=== PATIENT | male | born 1955 | race Caucasian/White ===

== ENCOUNTER → 2016-07-23 | Outpatient (CLI) | payer OTHER ==
[2016-07-23 13:06] LABS: MEAN CORPUSCULAR HEMOGLOBIN 31.4 pg (27.0-33.0); MEAN CORPUSCULAR HGB CONC 34.8 g/dl (32.0-36.5); MEAN CORPUSCULAR VOLUME 90.3 fl (80.0-96.0); RED CELL DISTRIBUTION WIDTH 12.2 % (11.5-14.5)
[2016-07-23 13:43] LABS: ALBUMIN 4.2 GM/DL (3.2-5.2); ALBUMIN/GLOBULIN RATIO 1.56 (1.00-1.93); ALKALINE PHOSPHATASE 45 U/L (45-117); ALT/SGPT 27 U/L (12-78); ANION GAP 8 MEQ/L (8-16); AST/SGOT 23 U/L (15-37); BILIRUBIN,TOTAL 0.8 MG/DL (0.2-1.0); BLOOD UREA NITROGEN 28 MG/DL (7-18); CALCIUM LEVEL 8.8 MG/DL (8.5-10.1); CARBON DIOXIDE LEVEL 29 MEQ/L (21-32); CHLORIDE LEVEL 107 MEQ/L (98-107); CHOLESTEROL LEVEL 173 MG/DL (<200); CREATININE FOR GFR 1.06 MG/DL (0.70-1.30); GLOMERULAR FILTRATION RATE > 60.0 (>56); GLUCOSE, FASTING 88 MG/DL (70-105); POTASSIUM SERUM 4.8 MEQ/L (3.5-5.1); SODIUM LEVEL 144 MEQ/L (136-145); TOTAL PROTEIN 6.9 GM/DL (6.4-8.2); TRIGLYCERIDES LEVEL 54 MG/DL (<150)
--- NOTE | 2016-07-23 13:57 | REP ---
PA AND LATERAL CHEST: 07/23/2016. Clinical history: Anemia. Comparison: 05/15/2015. Findings: The lung ugarte are well inflated. There are a few scattered granulomas again seen but stable. No effusion, infiltrate, pleural thickening, apical pneumothorax or parenchymal mass. The heart, mediastinal and hilar contours are normal. The airway is intact. The aorta mildly tortuous but normal for age. There are degenerative changes in the spine. Impression: 1. No acute cardiopulmonary disease, stable chest with some old granulomatous disease. Signed by Magdy Mix MD 07/23/2016 07:37 P
--- NOTE | 2016-07-23 15:18 | ECGEPIP ---
Stationary ECG Study [facility] Test Date: 2016-07-23 Pat Name: HARVINDER ATKINS Department: Room: - Gender: M Senior Process Control Tech: AGAPITO : 1955 Requested By: Gautam Gaffney Order Number: [id number] Reading MD: Saskia Somers Measurements Intervals [place] Rate: 74 P: 50 MS: 196 QRS: -18 QRSD: 105 T: 54 QT: 369 QTc: 410 Interpretive Statements SINUS RHYTHM Left axis deviation similar TO 01/05/16 Electronically Signed On 07-23-2016 15:18:22 EST by Saskia Somers
== END ==
LOC: M LAB 11:22
PROVIDERS: ATTEND Family Medicine
DX: D64.9 Anemia, unspecified (principal); E03.9 Hypothyroidism, unspecified

== ENCOUNTER 2016-08-03 12:10 | Emergency (ER) | payer OTHER ==
[2016-08-03 13:15] LABS: MEAN CORPUSCULAR HEMOGLOBIN 30.8 pg (27.0-33.0); MEAN CORPUSCULAR HGB CONC 33.9 g/dl (32.0-36.5); MEAN CORPUSCULAR VOLUME 90.8 fl (80.0-96.0); RED CELL DISTRIBUTION WIDTH 12.5 % (11.5-14.5); WHITE BLOOD COUNT 4.7 K/mm3 (4.0-10.0)
[2016-08-03 13:42] LABS: ALBUMIN/GLOBULIN RATIO 1.25 (1.00-1.93); ALKALINE PHOSPHATASE 47 U/L (45-117); ALT/SGPT 48 U/L (12-78); ANION GAP 11 MEQ/L (8-16); AST/SGOT 55 U/L (15-37); BILIRUBIN,DIRECT 0.1 MG/DL (0.0-0.2); BILIRUBIN,TOTAL 0.4 MG/DL (0.2-1.0); BLOOD UREA NITROGEN 16 MG/DL (7-18); CALCIUM LEVEL 8.2 MG/DL (8.5-10.1); CARBON DIOXIDE LEVEL 26 MEQ/L (21-32); CHLORIDE LEVEL 105 MEQ/L (98-107); GLOMERULAR FILTRATION RATE > 60.0 (>56); GLUCOSE, FASTING 91 MG/DL (70-105); POTASSIUM SERUM 4.2 MEQ/L (3.5-5.1); SODIUM LEVEL 142 MEQ/L (136-145); TOTAL PROTEIN 7.2 GM/DL (6.4-8.2)
[2016-08-03 18:17] LABS: CONTROL LINE INT CTR LINE PRESENT; METHADONE URINE NEGATIVE (NEGATIVE); TRICYCLIC ANTIDEPRESS URINE NEGATIVE (NEGATIVE)
[2016-08-03] MEDS ORDERED: IBUPROFEN 600 MG TAB As Ordered ONE (18:33)
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
--- NOTE | 2016-08-03 19:39 | EDDOCDS ---
Physician Documentation [facility] Name: Hermann Ritchie Age: 60 yrs Sex: Male : 1955 Arrival Date: 08/03/2016 Time: 12:10 Bed [facility] Private MD: Disposition: 08/03/16 19:07 Discharged to Home/Self Care. Impression: Alcohol abuse counseling and surveillance, Alcohol abuse with intoxication. - Condition is Stable. - Discharge Instructions: Alcohol Intoxication, Alcohol Use Disorder. - Medication Reconciliation, Local Pharmacy Hours form. - Follow up: Referral list, As provided by PFS; When: As soon as possible; Reason: Continuance of care. - Problem is an acute exacerbation. - Symptoms have improved. Historical: - Allergies: no known allergies; - Home Meds: 1. none - PMHx: none; - PSHx: Appendectomy; right 5th digit mallet repair; - Social history: Smoking status: Patient states was never smoker of tobacco. Patient uses alcohol occasionally. patient/guardian reports recent binge of alcohol consumption. Patient/guardian denies using street drugs, No barriers to communication noted, The patient speaks fluent Irish, Speaks appropriately for age. - Family history: Not pertinent. - : The pt / caregiver states he / she is not on anticoagulants. Home medication list is obtained from the patient. - Exposure Risk Screening:: None identified. Vital Signs: 08/03 12:16 BP 128 / 74; Pulse 99; Resp 20; Temp 98.0; Pulse Ox 96% on R/A; amw 12:19 Weight 81.65 kg / 180.01 lbs (R); Height 6 ft. 3 in. (190.50 cm) (R); Pain 0/10; ead 15:39 BP 109 / 71; Pulse 105; Resp 20; Temp 99.3(T); Pulse Ox 95% on R/A; Pain 0/10; jc4 19:36 BP 116 / 70; Pulse 89; Resp 16; Temp 97.9(T); Pulse Ox 96% on R/A; Pain 0/10; rw1 12:19 Body Mass Index 22.50 (81.65 kg, 190.50 cm) ead MDM: 12:24 Consult PFS/PSA/Black Topper ordered. ke 12:24 Consult PFS/PSA/Black Topper: Patient's case requires discussion with on-call ke Psychiatrist ordered. 12:24 PSA/PFS to call Nursing Care Aide, to enter patient data on [place] Safe Act if patient ke involuntarily admitted or transferred for SI or HI ordered. 12:24 Confirm accurate psychiatric medication list and times of last dosage ordered. ke 12:24 Detain Pt Until Medically/PFS Cleared ordered. ke 12:25 Acetaminophen Level Ordered. EDMS 12:25 Basic Metabolic Profile Ordered. EDMS 12:25 Complete Blood Count Ordered. EDMS 12:25 Drug Eval Toxicology ED Only Ordered. EDMS 12:25 Ethyl Alcohol (ethanol) Ordered. EDMS 12:25 Liver Profile Ordered. EDMS 12:25 Salicylate Level Ordered. EDMS 12:25 Thyroid Stimulating Hormone Ordered. EDMS 12:35 [facility] Legal paperwork was scanned into [email or web address] and attached to record. jfb 14:07 Acetaminophen Level Reviewed. ke 14:07 Basic Metabolic Profile Reviewed. ke 14:07 Ethyl Alcohol (ethanol) Reviewed. ke 14:07 Liver Profile Reviewed. ke 14:07 Salicylate Level Reviewed. ke 14:07 Complete Blood Count Reviewed. ke 14:07 Thyroid Stimulating Hormone Reviewed. ke 14:54 Financial registration complete. lg 15:18 [facility] Payment Agreement was scanned into [email or web address] and attached to record. lg 17:16 REGULAR DIET PLASTIC IRVIN+DIET ordered. EDMS 17:37 Ibuprofen 600 mg PO once ordered. ke 18:27 Drug Eval Toxicology ED Only Reviewed. ke 19:04 Consult PFS/PSA/Black Topper complete. jfb 19:04 Consult PFS/PSA/Black Topper: Patient's case requires discussion with on-call jlil Psychiatrist complete. 19:04 PSA/PFS to call Nursing Care Aide, to enter patient data [place] Safe Act if patient jfb involuntarily admitted or transferred for SI or HI complete. 19:25 PSA Outpatient Referrals was scanned into [email or web address] and attached to record. jfb Administered Medications: 18:37 Drug: Ibuprofen 600 mg [ibuprofen 600 mg tablet (1 tabs)] Route: PO; ja5 19:36 Follow up: Response: Pain is decreased rw1 Signatures: Dispatcher [employer] EDMS Oswald Muniz, Reg Reg lg Philip Guzman, MANAGER TALENT MANAGER TALENT Jewel Meyer,WAITER/WAITRESS TAVERN WAITER/WAITRESS TAVERN rw1 Beatriz Perez PSA PSA Mariam Acosta,RN RN Rebecca Billingsley RN RN ms18 Jhonatan, Nancy MCGINNIS ja5 The chart was reviewed and I authenticate all verbal orders and agree with the evaluation and treatment provided.Attachments: 15:18 [facility] Payment Agreement lg MTDD
--- NOTE | 2016-08-05 20:39 | EDDOCDS ---
Physician Documentation [facility] Name: Hermann Ritchie Age: 60 yrs Sex: Male : 1955 Arrival Date: 08/03/2016 Time: 12:10 Bed [facility] Private MD: Disposition: 08/03/16 19:07 Discharged to Home/Self Care. Impression: Alcohol abuse counseling and surveillance, Alcohol abuse with intoxication. - Condition is Stable. - Discharge Instructions: Alcohol Intoxication, Alcohol Use Disorder. - Medication Reconciliation, Local Pharmacy Hours form. - Follow up: Referral list, As provided by PFS; When: As soon as possible; Reason: Continuance of care. - Problem is an acute exacerbation. - Symptoms have improved. Historical: - Allergies: no known allergies; - Home Meds: 1. none - PMHx: none; - PSHx: Appendectomy; right 5th digit mallet repair; - Social history: Smoking status: Patient states was never smoker of tobacco. Patient uses alcohol occasionally. patient/guardian reports recent binge of alcohol consumption. Patient/guardian denies using street drugs, No barriers to communication noted, The patient speaks fluent [place]serrat[place], Speaks appropriately for age. - Family history: Not pertinent. - : The pt / caregiver states he / she is not on anticoagulants. Home medication list is obtained from the patient. - Exposure Risk Screening:: None identified. Vital Signs: 08/03 12:16 BP 128 / 74; Pulse 99; Resp 20; Temp 98.0; Pulse Ox 96% on R/A; amw 12:19 Weight 81.65 kg / 180.01 lbs (R); Height 6 ft. 3 in. (190.50 cm) (R); Pain 0/10; ead 15:39 BP 109 / 71; Pulse 105; Resp 20; Temp 99.3(T); Pulse Ox 95% on R/A; Pain 0/10; jc4 19:36 BP 116 / 70; Pulse 89; Resp 16; Temp 97.9(T); Pulse Ox 96% on R/A; Pain 0/10; rw1 12:19 Body Mass Index 22.50 (81.65 kg, 190.50 cm) ead MDM: 12:24 Consult PFS/PSA/[employer] ordered. ke 12:24 Consult PFS/PSA/[employer]: Patient's case requires discussion with on-call ke Psychiatrist ordered. 12:24 PSA/PFS to call Nursing Business Asst, to enter patient data on [place] Safe [place] if patient ke involuntarily admitted or transferred for SI or HI ordered. 12:24 Confirm accurate psychiatric medication list and times of last dosage ordered. ke 12:24 Detain Pt Until Medically/PFS Cleared ordered. ke 12:25 Acetaminophen Level Ordered. EDMS 12:25 Basic Metabolic Profile Ordered. EDMS 12:25 Complete Blood Count Ordered. EDMS 12:25 Drug Eval Toxicology ED Only Ordered. EDMS 12:25 Ethyl Alcohol (ethanol) Ordered. EDMS 12:25 Liver Profile Ordered. EDMS 12:25 Salicylate Level Ordered. EDMS 12:25 Thyroid Stimulating Hormone Ordered. EDMS 12:35 [facility] Legal paperwork was scanned into [employer] and attached to record. jfb 14:07 Acetaminophen Level Reviewed. ke 14:07 Basic Metabolic Profile Reviewed. ke 14:07 Ethyl Alcohol (ethanol) Reviewed. ke 14:07 Liver Profile Reviewed. ke 14:07 Salicylate Level Reviewed. ke 14:07 Complete Blood Count Reviewed. ke 14:07 Thyroid Stimulating Hormone Reviewed. ke 14:54 Financial registration complete. lg 15:18 [facility] Payment Agreement was scanned into [employer] and attached to record. lg 17:16 REGULAR DIET PLASTIC IRVIN+DIET ordered. EDMS 17:37 Ibuprofen 600 mg PO once ordered. ke 18:27 Drug Eval Toxicology ED Only Reviewed. ke 19:04 Consult PFS/PSA/[employer] complete. jfb 19:04 Consult PFS/PSA/[employer]: Patient's case requires discussion with on-call [facility] Psychiatrist complete. 19:04 PSA/PFS to call Nursing Business Asst, to enter [place] data [place] if patient jfb involuntarily admitted or transferred for SI or HI complete. 19:25 PSA Outpatient Referrals was scanned into [employer] and attached to record. jfb 08/04 19:03 T-Sheet-- Draft Copy was scanned into [employer] and attached to record. klr Administered Medications: 08/03 18:37 Drug: Ibuprofen 600 mg [ibuprofen 600 mg tablet (1 tabs)] Route: PO; ja5 19:36 Follow up: Response: Pain is decreased rw1 Signatures: Dispatcher [employer] EDMS Oswald Munzi, Reg Reg lg Philip Guzman, TICKETER TICKETER Jewel Meyer,AIRPORT SHUTTLE DRIVER AIRPORT SHUTTLE DRIVER rw1 Beatriz Perez, PSA PSA siobhanb Mariam Bates,RN RN Rebecca Billingsley RN RN ms18 Georgiana Johnson Jessica RN ja5 The chart was reviewed and I authenticate all verbal orders and agree with the evaluation and treatment provided.Attachments: 15:18 [facility] Payment Agreement 08/04 19:03 T-Sheet-- Draft Copy gordo Chart Complete MTDD
--- NOTE | 2016-08-05 20:39 | EDDOCDS ---
Physician Documentation [facility] Name: Hermann Ritchie Age: 60 yrs Sex: Male : 1955 Arrival Date: 08/03/2016 Time: 12:10 Bed [facility] Private MD: Disposition: 08/03/16 19:07 Discharged to Home/Self Care. Impression: Alcohol abuse counseling and surveillance, Alcohol abuse with intoxication. - Condition is Stable. - Discharge Instructions: Alcohol Intoxication, Alcohol Use Disorder. - Medication Reconciliation, Local Pharmacy Hours form. - Follow up: Referral list, As provided by PFS; When: As soon as possible; Reason: Continuance of care. - Problem is an acute exacerbation. - Symptoms have improved. Historical: - Allergies: no known allergies; - Home Meds: 1. none - PMHx: none; - PSHx: Appendectomy; right 5th digit mallet repair; - Social history: Smoking status: Patient states was never smoker of tobacco. Patient uses alcohol occasionally. patient/guardian reports recent binge of alcohol consumption. Patient/guardian denies using street drugs, No barriers to communication noted, The patient speaks fluent Liberian, Speaks appropriately for age. - Family history: Not pertinent. - : The pt / caregiver states he / she is not on anticoagulants. Home medication list is obtained from the patient. - Exposure Risk Screening:: None identified. Vital Signs: 08/03 12:16 BP 128 / 74; Pulse 99; Resp 20; Temp 98.0; Pulse Ox 96% on R/A; amw 12:19 Weight 81.65 kg / 180.01 lbs (R); Height 6 ft. 3 in. (190.50 cm) (R); Pain 0/10; ead 15:39 BP 109 / 71; Pulse 105; Resp 20; Temp 99.3(T); Pulse Ox 95% on R/A; Pain 0/10; jc4 19:36 BP 116 / 70; Pulse 89; Resp 16; Temp 97.9(T); Pulse Ox 96% on R/A; Pain 0/10; rw1 12:19 Body Mass Index 22.50 (81.65 kg, 190.50 cm) ead MDM: 12:24 Consult PFS/PSA/Preschool Program Director ordered. ke 12:24 Consult PFS/PSA/Preschool Program Director: Patient's case requires discussion with on-call ke Psychiatrist ordered. 12:24 PSA/PFS to call Nursing Screen Operator, to [place] data [place] if patient ke involuntarily admitted or transferred for SI or HI ordered. 12:24 Confirm accurate psychiatric medication list and times of last dosage ordered. ke 12:24 Detain Pt Until Medically/PFS Cleared ordered. ke 12:25 Acetaminophen Level Ordered. EDMS 12:25 Basic Metabolic Profile Ordered. EDMS 12:25 Complete Blood Count Ordered. EDMS 12:25 Drug Eval Toxicology ED Only Ordered. EDMS 12:25 Ethyl Alcohol (ethanol) Ordered. EDMS 12:25 Liver Profile Ordered. EDMS 12:25 Salicylate Level Ordered. EDMS 12:25 Thyroid Stimulating Hormone Ordered. EDMS 12:35 [facility] Legal paperwork was scanned into [employer] and attached to record. jfb 14:07 Acetaminophen Level Reviewed. ke 14:07 Basic Metabolic Profile Reviewed. ke 14:07 Ethyl Alcohol (ethanol) Reviewed. ke 14:07 Liver Profile Reviewed. ke 14:07 Salicylate Level Reviewed. ke 14:07 Complete Blood Count Reviewed. ke 14:07 Thyroid Stimulating Hormone Reviewed. ke 14:54 Financial registration complete. lg 15:18 [facility] Payment Agreement was scanned into [employer] and attached to record. lg 17:16 REGULAR DIET PLASTIC IRVIN+DIET ordered. EDMS 17:37 Ibuprofen 600 mg PO once ordered. ke 18:27 Drug Eval Toxicology ED Only Reviewed. ke 19:04 Consult PFS/PSA/Preschool Program Director complete. jfb 19:04 Consult PFS/PSA/Preschool Program Director: Patient's case requires discussion with on-call [facility] Psychiatrist complete. 19:04 PSA/PFS to call Nursing Screen Operator, to [place] if patient jfb involuntarily admitted or transferred for SI or HI complete. 19:25 PSA Outpatient Referrals was scanned into [employer] and attached to record. jfb 08/04 19:03 T-Sheet-- Draft Copy was scanned into [employer] and attached to record. klr Administered Medications: 08/03 18:37 Drug: Ibuprofen 600 mg [ibuprofen 600 mg tablet (1 tabs)] Route: PO; ja5 19:36 Follow up: Response: Pain is decreased rw1 Signatures: Dispatcher [employer] EDMS Oswald Muniz, Reg Reg lg Philip Guzman, CLEAN RICE BROKER CLEAN RICE BROKER Jewel Meyer,NOCTURNIST PHYSICIAN NOCTURNIST PHYSICIAN rw1 Beatriz Perez, PSA PSA siobhanb Mariam Bates,RN RN Rebecca Billingsley RN RN ms18 Georgiana Johnson Jessica RN ja5 The chart was reviewed and I authenticate all verbal orders and agree with the evaluation and treatment provided.Attachments: 15:18 [facility] Payment Agreement 08/04 19:03 T-Sheet-- Draft Copy gordo Chart Complete MTDD
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
== END 2016-08-03 19:38 | disposition home or self-care (01) ==
LOC: M ED 12:10
DX: F10.120 Alcohol abuse with intoxication, uncomplicated (principal)
CPT/HCPCS: 36415; 80048; 80076; 80306; 84443; 85027; 99284; G0480

== ENCOUNTER → 2016-12-21 | Outpatient (CLI) | payer OTHER | LOC: M SMT 10:41 | PROVIDERS: ATTEND Urology | DX: Z12.5 Encounter for screening for malignant neoplasm of prostate (principal) ==

== ENCOUNTER → 2017-09-06 | Outpatient (CLI) | payer OTHER ==
[2017-09-06 14:28] LABS: HEMATOCRIT 45.9 % (42.0-52.0); HEMOGLOBIN 15.5 g/dl (14.0-18.0); MEAN CORPUSCULAR HEMOGLOBIN 29.6 pg (27.0-33.0); MEAN CORPUSCULAR HGB CONC 33.8 g/dl (32.0-36.5); MEAN CORPUSCULAR VOLUME 87.6 fl (80.0-96.0); PLATELET COUNT, AUTOMATED 218 10^3/uL (150-450); RED BLOOD COUNT 5.24 10^6/uL (4.30-6.10); WHITE BLOOD COUNT 5.1 10^3/uL (4.0-10.0)
[2017-09-06 15:17] LABS: TESTOSTERONE 423 NG/DL (241-827)
[2017-09-06 20:18] LABS: ALBUMIN 3.8 GM/DL (3.2-5.2); ALBUMIN/GLOBULIN RATIO 1.27 (1.00-1.93); ALKALINE PHOSPHATASE 36 U/L (45-117); ALT/SGPT 24 U/L (12-78); ANION GAP 7 MEQ/L (8-16); AST/SGOT 16 U/L (7-37); BILIRUBIN,TOTAL 0.7 MG/DL (0.2-1.0); BLOOD UREA NITROGEN 26 MG/DL (7-18); CALCIUM LEVEL 8.5 MG/DL (8.8-10.2); CARBON DIOXIDE LEVEL 30 MEQ/L (21-32); CHLORIDE LEVEL 105 MEQ/L (98-107); CHOLESTEROL LEVEL 160 MG/DL (<200); CHOLESTEROL RISK RATIO 2.622 (<5); CREATININE FOR GFR 1.01 MG/DL (0.70-1.30); GLOMERULAR FILTRATION RATE > 60.0 (>49); GLUCOSE, FASTING 88 MG/DL (70-100); HDL CHOLESTEROL 61 MG/DL (>40); LDL CHOLESTEROL 85.4 MG/DL (<100); NON-HDL-C 99 MG/DL; POTASSIUM SERUM 4.5 MEQ/L (3.5-5.1); PROSTATIC SPECIFIC AG MONITOR 1.08 NG/ML (< 4.0); SODIUM LEVEL 142 MEQ/L (136-145); TOTAL PROTEIN 6.8 GM/DL (6.4-8.2); TRIGLYCERIDES LEVEL 68 MG/DL (<150)
== END ==
LOC: M LAB 14:04
DX: R53.83 Other fatigue (principal); N40.1 Benign prostatic hyperplasia with lower urinary tract symptoms
CPT/HCPCS: 93005

== ENCOUNTER → 2018-01-11 | Outpatient (CLI) | payer OTHER ==
[2018-01-11 18:54] LABS: PROSTATIC SPECIFIC AG MONITOR 0.93 NG/ML (< 4.0)
== END ==
LOC: M SMT 13:56
DX: R97.20 Elevated prostate specific antigen [PSA] (principal)

== ENCOUNTER → 2018-09-01 | Outpatient (CLI) | payer OTHER ==
[2018-09-01 09:12] LABS: HEMATOCRIT 46.1 % (42.0-52.0); HEMOGLOBIN 15.7 g/dl (13.5-17.5); MEAN CORPUSCULAR HEMOGLOBIN 30.1 pg (27.0-33.0); MEAN CORPUSCULAR HGB CONC 34.1 g/dl (32.0-36.5); MEAN CORPUSCULAR VOLUME 88.5 fl (80.0-96.0); PLATELET COUNT, AUTOMATED 172 10^3/uL (150-450); RED BLOOD COUNT 5.21 10^6/uL (4.30-6.10); WHITE BLOOD COUNT 3.5 10^3/uL (4.0-10.0)
[2018-09-01 09:33] LABS: ALBUMIN 3.8 GM/DL (3.2-5.2); ALT/SGPT 27 U/L (12-78); BILIRUBIN,TOTAL 0.6 MG/DL (0.2-1.0); BLOOD UREA NITROGEN 28 MG/DL (7-18); CALCIUM LEVEL 8.9 MG/DL (8.8-10.2); CARBON DIOXIDE LEVEL 29 MEQ/L (21-32); CHLORIDE LEVEL 106 MEQ/L (98-107); CHOLESTEROL LEVEL 186 MG/DL (<200); CHOLESTEROL RISK RATIO 3.576 (<5); CREATININE FOR GFR 1.06 MG/DL (0.70-1.30); GLOMERULAR FILTRATION RATE > 60.0 (>49); GLUCOSE, FASTING 92 MG/DL (70-100); HDL CHOLESTEROL 52 MG/DL (>40); LDL CHOLESTEROL 118 MG/DL (<100); NON-HDL-C 134 MG/DL; POTASSIUM SERUM 4.5 MEQ/L (3.5-5.1); PROSTATIC SPECIFIC AG MONITOR 0.88 NG/ML (< 4.00); SODIUM LEVEL 141 MEQ/L (136-145); TOTAL PROTEIN 6.6 GM/DL (6.4-8.2); TRIGLYCERIDES LEVEL 81 MG/DL (<150)
[2018-09-01 09:45] LABS: HEMOGLOBIN A1c 5.2 %
--- NOTE | 2018-09-02 09:38 | REP ---
CHEST, TWO VIEWS: COMPARISON: 07/23/2016. Two views of the chest are performed. A few tiny calcific granulomas are scattered bilaterally, unchanged. There is no acute infiltrate or pulmonary edema. The heart is normal in size. The mediastinal silhouette is unchanged. There are degenerative changes of the spine. IMPRESSION: No acute pulmonary disease. Electronically Signed by Juancarlos Leiva MD 09/02/2018 10:38 A
--- NOTE | 2018-09-02 13:33 | ECGEPIP ---
Stationary ECG Study [facility] Test Date: 2018-09-01 Pat Name: HARVINDER ATKINS Department: Room: - Gender: M Log Manager: BJJM : 1955 Requested By: Gautam Gaffney Order Number: [id number] Reading MD: Wali Conway Measurements Intervals [place] Rate: 57 P: 56 KS: 211 QRS: -5 QRSD: 110 T: 56 QT: 417 QTc: 408 Interpretive Statements SINUS BRADYCARDIA WITH FIRST DEGREE AV BLOCK LOW QRS VOLTAGE IN EXTREMITY LEADS INCOMPLETE RIGHT BUNDLE BRANCH BLOCK Left axis deviation Electronically Signed On 09-02-2018 13:33:35 EDT by Wali Conway
[2018-09-03 10:15] LABS: TESTOSTERONE 666 NG/DL (241-827)
== END ==
LOC: M LAB 08:39
PROVIDERS: ATTEND Family Medicine
DX: R53.83 Other fatigue (principal); D64.9 Anemia, unspecified; E03.9 Hypothyroidism, unspecified; N40.1 Benign prostatic hyperplasia with lower urinary tract symptoms

== ENCOUNTER → 2019-02-28 | Outpatient (CLI) | payer OTHER ==
[2019-02-28 09:50] LABS: HEMATOCRIT 44.8 % (42.0-52.0); HEMOGLOBIN 15.3 g/dl (13.5-17.5); MEAN CORPUSCULAR HEMOGLOBIN 31.8 pg (27.0-33.0); MEAN CORPUSCULAR HGB CONC 34.2 g/dl (32.0-36.5); MEAN CORPUSCULAR VOLUME 93.1 fl (80.0-96.0); PLATELET COUNT, AUTOMATED 183 10^3/uL (150-450); RED BLOOD COUNT 4.81 10^6/uL (4.30-6.10); WHITE BLOOD COUNT 3.5 10^3/uL (4.0-10.0)
[2019-02-28 10:27] LABS: ALBUMIN 3.9 GM/DL (3.2-5.2); ALT/SGPT 40 U/L (12-78); BILIRUBIN,TOTAL 0.7 MG/DL (0.2-1.0); BLOOD UREA NITROGEN 23 MG/DL (7-18); CALCIUM LEVEL 8.7 MG/DL (8.8-10.2); CARBON DIOXIDE LEVEL 27 MEQ/L (21-32); CHLORIDE LEVEL 107 MEQ/L (98-107); CHOLESTEROL LEVEL 198 MG/DL (<200); CREATININE FOR GFR 0.96 MG/DL (0.70-1.30); GLOMERULAR FILTRATION RATE > 60.0 (>49); GLUCOSE, FASTING 89 MG/DL (70-100); HDL CHOLESTEROL 66 MG/DL (>40); LDL CHOLESTEROL 118 MG/DL (<100); NON-HDL-C 132 MG/DL; POTASSIUM SERUM 4.5 MEQ/L (3.5-5.1); PROSTATIC SPECIFIC AG MONITOR 1.13 NG/ML (< 4.00); SODIUM LEVEL 140 MEQ/L (136-145); TOTAL PROTEIN 6.6 GM/DL (6.4-8.2); TRIGLYCERIDES LEVEL 70 MG/DL (<150)
== END ==
LOC: M LAB 08:55
PROVIDERS: ATTEND Family Medicine
DX: D64.9 Anemia, unspecified (principal)

== ENCOUNTER → 2019-02-28 | Outpatient (CLI) | payer OTHER ==
[2019-03-01 14:26] LABS: PSA TOTAL 1.1 ng/mL (0.0-4.0)
== END ==
LOC: M LAB 08:59
PROVIDERS: ATTEND Nurse Practitioner Women's Health
DX: R97.20 Elevated prostate specific antigen [PSA] (principal)

== ENCOUNTER → 2020-03-06 | Outpatient (CLI) | payer BC ==
[2020-03-06 07:24] LABS: HEMOGLOBIN 15.3 g/dl (13.5-17.5); MEAN CORPUSCULAR HEMOGLOBIN 30.3 pg (27.0-33.0); MEAN CORPUSCULAR VOLUME 89.1 fl (80.0-96.0); PLATELET COUNT, AUTOMATED 184 10^3/uL (150-450); RED BLOOD COUNT 5.05 10^6/uL (4.30-6.10); WHITE BLOOD COUNT 4.1 10^3/uL (4.0-10.0)
[2020-03-06 07:56] LABS: ALBUMIN 3.4 GM/DL (3.2-5.2); ALT/SGPT 24 U/L (12-78); BILIRUBIN,TOTAL 0.5 MG/DL (0.2-1.0); BLOOD UREA NITROGEN 22 MG/DL (7-18); CALCIUM LEVEL 8.7 MG/DL (8.8-10.2); CARBON DIOXIDE LEVEL 27 MEQ/L (21-32); CHLORIDE LEVEL 110 MEQ/L (98-107); CHOLESTEROL LEVEL 156 MG/DL (<200); CHOLESTEROL RISK RATIO 2.785 (<5); CREATININE FOR GFR 1.07 MG/DL (0.70-1.30); GLOMERULAR FILTRATION RATE > 60.0 (>49); GLUCOSE, FASTING 90 MG/DL (70-100); HDL CHOLESTEROL 56 MG/DL (>40); LDL CHOLESTEROL 87 MG/DL (<100); NON-HDL-C 100 MG/DL; POTASSIUM SERUM 4.5 MEQ/L (3.5-5.1); SODIUM LEVEL 142 MEQ/L (136-145); TOTAL PROTEIN 6.2 GM/DL (6.4-8.2); TRIGLYCERIDES LEVEL 65 MG/DL (<150)
[2020-03-06 10:08] LABS: HEMOGLOBIN A1c 5.2 %
[2020-03-06 10:53] LABS: TESTOSTERONE 794 NG/DL (241-827)
--- NOTE | 2020-03-07 09:33 | ECGEPIP ---
[facility] Test Date: 2020-03-06 Pat Name: HARVINDER ATKINS Department: Room: - Gender: Male Sales Mgr: LILIAN : 1955 Requested By: Gautam Gaffney Order Number: [id number] Reading MD: Rickie Patiño Measurements Intervals [place] Rate: 61 P: 53 TN: 196 QRS: -34 QRSD: 104 T: 62 QT: 398 QTc: 404 Interpretive Statements Normal sinus rhythm with sinus arrhythmia Low QRS complex voltage in the limb leads Left axis deviation Early anterior R wave progression No significant change when compared to prior tracing of 09/01/2018 Electronically Signed on 03-07-2020 9:33:26 EDT by Rickie Patiño
--- NOTE | 2020-03-12 16:45 | REP ---
CHEST X-RAY CLINICAL: History of hypertension, anemia, and hypothyroidism. TECHNIQUE: PA and lateral. COMPARISON: 09/01/2018. FINDINGS: Mediastinum and cardiac silhouette are normal. Lung ugarte are clear. No consolidation, effusion, or pneumothorax. Skeletal structures are intact. IMPRESSION: No acute cardiopulmonary process or focal consolidation. MTDD
== END ==
LOC: M LAB 06:04
PROVIDERS: ATTEND Family Medicine
DX: E03.9 Hypothyroidism, unspecified (principal); D64.9 Anemia, unspecified; N40.1 Benign prostatic hyperplasia with lower urinary tract symptoms; R94.31 Abnormal electrocardiogram [ECG] [EKG]

== ENCOUNTER → 2021-03-04 | Outpatient (CLI) | payer BC ==
[2021-03-04 07:18] LABS: HEMATOCRIT 46.9 % (42.0-52.0); HEMOGLOBIN 15.9 g/dl (13.5-17.5); MEAN CORPUSCULAR HEMOGLOBIN 29.9 pg (27.0-33.0); MEAN CORPUSCULAR HGB CONC 33.9 g/dl (32.0-36.5); MEAN CORPUSCULAR VOLUME 88.3 fl (80.0-96.0); PLATELET COUNT, AUTOMATED 195 10^3/uL (150-450); RED BLOOD COUNT 5.31 10^6/uL (4.30-6.10); WHITE BLOOD COUNT 4.4 10^3/uL (4.0-10.0)
[2021-03-04 07:42] LABS: ALBUMIN 3.8 GM/DL (3.2-5.2); ALT/SGPT 20 U/L (12-78); BILIRUBIN,TOTAL 0.8 MG/DL (0.2-1.0); BLOOD UREA NITROGEN 26 MG/DL (7-18); CARBON DIOXIDE LEVEL 28 MEQ/L (21-32); CHLORIDE LEVEL 107 MEQ/L (98-107); CHOLESTEROL LEVEL 174 MG/DL (<200); CHOLESTEROL RISK RATIO 3.107 (<5); CREATININE FOR GFR 1.03 MG/DL (0.70-1.30); GLOMERULAR FILTRATION RATE > 60.0 (>49); GLUCOSE, FASTING 94 MG/DL (70-100); HDL CHOLESTEROL 56 MG/DL (>40); LDL CHOLESTEROL 100 MG/DL (<100); NON-HDL-C 118 MG/DL; POTASSIUM SERUM 4.5 MEQ/L (3.5-5.1); PROSTATIC SPECIFIC AG MONITOR 2.06 NG/ML (< 4.00); SODIUM LEVEL 142 MEQ/L (136-145); TOTAL PROTEIN 6.8 GM/DL (6.4-8.2); TRIGLYCERIDES LEVEL 89 MG/DL (<150)
[2021-03-04 08:47] LABS: HEMOGLOBIN A1c 5.2 %
[2021-03-04 10:57] LABS: TESTOSTERONE 683 NG/DL (241-827)
== END ==
LOC: M LAB 06:51
PROVIDERS: ATTEND Family Medicine
DX: D64.9 Anemia, unspecified (principal); R53.83 Other fatigue; E03.9 Hypothyroidism, unspecified

== ENCOUNTER → 2021-09-02 | Outpatient (CLI) | payer BC ==
[2021-09-02 08:37] LABS: THYROID STIMULATING HORMONE 3.37 uIU/ML (0.358-3.740); THYROXINE (T4) 9.4 UG/DL (4.5-12.0)
[2021-09-02 09:14] LABS: TOTAL T3 89.5 NG/DL (60.0-181.0)
== END ==
LOC: M LAB 07:02
PROVIDERS: ATTEND Family Medicine
DX: E03.9 Hypothyroidism, unspecified (principal); R53.83 Other fatigue

== ENCOUNTER → 2022-04-05 | Outpatient (CLI) | payer MEDICARE, BC ==
[2022-04-05 07:30] LABS: HEMATOCRIT 43.3 % (42.0-52.0); HEMOGLOBIN 14.8 g/dl (13.5-17.5); MEAN CORPUSCULAR HEMOGLOBIN 29.7 pg (27.0-33.0); MEAN CORPUSCULAR HGB CONC 34.2 g/dl (32.0-36.5); MEAN CORPUSCULAR VOLUME 86.9 fl (80.0-96.0); PLATELET COUNT, AUTOMATED 174 10^3/uL (150-450); RED BLOOD COUNT 4.98 10^6/uL (4.30-6.10); WHITE BLOOD COUNT 4.7 10^3/uL (4.0-10.0)
[2022-04-05 07:57] LABS: HEMOGLOBIN A1c 5.1 %
[2022-04-05 08:13] LABS: ALBUMIN 3.5 GM/DL (3.2-5.2); ALT/SGPT 23 U/L (12-78); BILIRUBIN,TOTAL 0.3 MG/DL (0.2-1.0); BLOOD UREA NITROGEN 32 MG/DL (7-18); CALCIUM LEVEL 8.9 MG/DL (8.8-10.2); CARBON DIOXIDE LEVEL 26 MEQ/L (21-32); CHLORIDE LEVEL 106 MEQ/L (98-107); CHOLESTEROL LEVEL 144 MG/DL (<200); CHOLESTEROL RISK RATIO 2.938 (<5); CREATININE FOR GFR 0.92 MG/DL (0.70-1.30); GLOMERULAR FILTRATION RATE > 60.0 (>49); GLUCOSE, FASTING 102 MG/DL (70-100); HDL CHOLESTEROL 49 MG/DL (>40); LDL CHOLESTEROL 65 MG/DL (<100); NON-HDL-C 95 MG/DL; POTASSIUM SERUM 4.4 MEQ/L (3.5-5.1); PROSTATIC SPECIFIC AG MONITOR 1.58 NG/ML (< 4.00); SODIUM LEVEL 138 MEQ/L (136-145); TOTAL PROTEIN 6.4 GM/DL (6.4-8.2); TRIGLYCERIDES LEVEL 148 MG/DL (<150)
[2022-04-05 09:53] LABS: TOTAL 25(OH) VITAMIN D 68.4 NG/ML (30.0-100.0)
[2022-04-05 09:57] LABS: TESTOSTERONE 717 NG/DL (241-827)
== END ==
LOC: M LAB 06:10
PROVIDERS: ATTEND Family Medicine
DX: D64.9 Anemia, unspecified (principal); R53.83 Other fatigue; E03.9 Hypothyroidism, unspecified

== ENCOUNTER → 2022-11-16 | Outpatient (CLI) | payer MEDICARE, BC ==
[2022-11-16 07:40] LABS: HEMATOCRIT 46.6 % (42.0-52.0); HEMOGLOBIN 15.6 g/dl (13.5-17.5); MEAN CORPUSCULAR HEMOGLOBIN 30.6 pg (27.0-33.0); MEAN CORPUSCULAR HGB CONC 33.5 g/dl (32.0-36.5); MEAN CORPUSCULAR VOLUME 91.6 fl (80.0-96.0); PLATELET COUNT, AUTOMATED 189 10^3/uL (150-450); RED BLOOD COUNT 5.09 10^6/uL (4.30-6.10); WHITE BLOOD COUNT 4.6 10^3/uL (4.0-10.0)
[2022-11-16 08:02] LABS: URIC ACID 3.9 MG/DL (3.7-9.2)
[2022-11-16 08:06] LABS: ALBUMIN 3.8 G/DL (3.2-5.2); ALKALINE PHOSPHATASE 42 U/L (46-116); ALT/SGPT 16 U/L (7.0-40); AST/SGOT 14 U/L (<34); BILIRUBIN,TOTAL 0.6 MG/DL (0.3-1.2); BLOOD UREA NITROGEN 29 MG/DL (9-23); CALCIUM LEVEL 8.5 MG/DL (8.3-10.6); CARBON DIOXIDE LEVEL 26 MMOL/L (20-31); CHLORIDE LEVEL 108 MMOL/L (98-107); CHOLESTEROL LEVEL 177 MG/DL (<200); CHOLESTEROL RISK RATIO 3.19 (<5); CREATININE FOR GFR 0.88 MG/DL (0.70-1.30); GLOMERULAR FILTRATION RATE > 60.0 (>49); GLUCOSE, FASTING 99 MG/DL (74-106); HDL CHOLESTEROL 55.4 MG/DL (>40); LDL CHOLESTEROL 110.6 MG/DL (<100); NON-HDL-C 121.6 MG/DL; POTASSIUM SERUM 4.8 MMOL/L (3.5-5.1); PROSTATIC SPECIFIC AG MONITOR 1.11 NG/ML (< 4.00); SODIUM LEVEL 140 MMOL/L (136-145); TOTAL PROTEIN 6.4 G/DL (5.7-8.2); TRIGLYCERIDES LEVEL 55 MG/DL (<150)
[2022-11-16 08:09] LABS: RHEUMATOID FACTOR QUANT < 3.5 IU/ML (<14); THYROID STIMULATING HORMONE 1.086 uIU/ML (0.55-4.78)
[2022-11-16 08:10] LABS: TESTOSTERONE 732 NG/DL (241-827)
[2022-11-16 08:12] LABS: HEMOGLOBIN A1c 5.2 % (4.0-6.0)
== END ==
LOC: M LAB 06:11
PROVIDERS: ATTEND Family Medicine
DX: D64.9 Anemia, unspecified (principal); R53.83 Other fatigue; E03.9 Hypothyroidism, unspecified

== ENCOUNTER → 2022-11-24 | Outpatient (CLI) | payer MEDICARE, BC | LOC: M RAD 06:06 | PROVIDERS: ATTEND Family Medicine | DX: E03.9 Hypothyroidism, unspecified (principal); I51.7 Cardiomegaly; R94.31 Abnormal electrocardiogram [ECG] [EKG] ==

== ENCOUNTER → 2024-01-11 | Outpatient (CLI) | payer MEDICARE, BC ==
[2024-01-11 07:44] LABS: HEMATOCRIT 43.9 % (42.0-52.0); HEMOGLOBIN 15.3 g/dl (13.5-17.5); MEAN CORPUSCULAR HEMOGLOBIN 30.7 pg (27.0-33.0); MEAN CORPUSCULAR HGB CONC 34.9 g/dl (32.0-36.5); MEAN CORPUSCULAR VOLUME 88.2 fl (80.0-96.0); PLATELET COUNT, AUTOMATED 178 10^3/uL (150-450); RED BLOOD COUNT 4.98 10^6/uL (4.30-6.10); WHITE BLOOD COUNT 4.9 10^3/uL (4.0-10.0)
[2024-01-11 08:02] LABS: HEMOGLOBIN A1c 5.1 % (4.0-6.0)
[2024-01-11 08:12] LABS: ALBUMIN 3.9 G/DL (3.2-5.2); ALKALINE PHOSPHATASE 41 U/L (46-116); ALT/SGPT 20 U/L (7.0-40); AST/SGOT 13 U/L (<34); BILIRUBIN,TOTAL 0.5 MG/DL (0.3-1.2); BLOOD UREA NITROGEN 31 MG/DL (9-23); CARBON DIOXIDE LEVEL 26 MMOL/L (20-31); CHLORIDE LEVEL 107 MMOL/L (98-107); CHOLESTEROL LEVEL 162 MG/DL (<200); CHOLESTEROL RISK RATIO 3.31 (<5); CREATININE FOR GFR 0.91 MG/DL (0.70-1.30); GLOMERULAR FILTRATION RATE > 60.0 (>49); GLUCOSE, FASTING 94 MG/DL (74-106); HDL CHOLESTEROL 48.9 MG/DL (>40); LDL CHOLESTEROL 96.3 MG/DL (<100); NON-HDL-C 113.1 MG/DL; POTASSIUM SERUM 4.2 MMOL/L (3.5-5.1); PROSTATIC SPECIFIC AG MONITOR 1.73 NG/ML (< 4.00); SODIUM LEVEL 139 MMOL/L (136-145); TOTAL PROTEIN 6.4 G/DL (5.7-8.2); TRIGLYCERIDES LEVEL 84 MG/DL (<150)
[2024-01-11 08:13] LABS: THYROID STIMULATING HORMONE 2.657 uIU/ML (0.55-4.78); TOTAL 25(OH) VITAMIN D 81.6 NG/ML (20.0-100.0)
[2024-01-11 08:14] LABS: TESTOSTERONE 517 NG/DL (241-827); THYROXINE (T4) 9.4 UG/DL (4.5-10.9); TOTAL T3 92.6 NG/DL (60.0-181.0)
== END ==
LOC: M RAD 06:13
PROVIDERS: ATTEND Family Medicine
DX: D64.9 Anemia, unspecified (principal); R53.83 Other fatigue; E03.9 Hypothyroidism, unspecified; R00.1 Bradycardia, unspecified; R94.31 Abnormal electrocardiogram [ECG] [EKG]